=== PATIENT | female | born 1985 | race Caucasian/White ===

== ENCOUNTER 2020-06-26 10:18 | Emergency (ER) | payer OTHER ==
[~2020-06-26] VITALS: Ht 167.6 cm; Wt 100.0 kg
[2020-06-26 10:26] VITALS: TEMP 97.8
[2020-06-26] MEDS ORDERED: FLEXERIL 1010 MG/TAB PO (11:49)
[2020-06-26 11:54] VITALS: BP 124/77; PULSE 65
== END 2020-06-26 11:57 | disposition home or self-care (01) ==
LOC: COL.ER 10:18
DX: M54.2 Cervicalgia (principal); V89.2XXA Person injured in unspecified motor-vehicle accident, traffic, initial encounter
CPT/HCPCS: J1885